=== PATIENT | female | born 1945 | race Caucasian/White ===

== ENCOUNTER 2017-05-31 09:43 | Outpatient (CLI) | payer MEDICARE, OTHER ==
[2017-05-31 10:27] LABS: eGFR (African) > 60; eGFR (Non-African) > 60
== END 2017-05-31 09:44 ==
LOC: LAB 09:43
PROVIDERS: ATTEND Family Medicine
DX: I10 Essential (primary) hypertension (principal); E11.9 Type 2 diabetes mellitus without complications
CPT/HCPCS: 36415; 80053; 80061; 82043; 83036

== ENCOUNTER 2018-06-03 09:15 | Outpatient (CLI) | payer MEDICARE, OTHER ==
[2018-06-03 12:03] LABS: eGFR (Non-African) > 60
== END 2018-06-03 09:30 ==
LOC: LAB 09:15
PROVIDERS: ATTEND Family Medicine
DX: E11.9 Type 2 diabetes mellitus without complications (principal); I10 Essential (primary) hypertension
CPT/HCPCS: 36415; 80053; 80061; 82043; 83036

== ENCOUNTER 2019-06-18 09:55 | Outpatient (CLI) | payer MEDICARE, OTHER ==
[2019-06-30 12:42] LABS: HDL 38 mg/dL (>40); eGFR (Non-African) > 60
== END 2019-06-18 10:05 ==
LOC: LAB 09:55
PROVIDERS: ATTEND Family Medicine
DX: I10 Essential (primary) hypertension (principal); E11.9 Type 2 diabetes mellitus without complications
CPT/HCPCS: 36415; 80053; 80061; 83036

== ENCOUNTER 2019-08-27 13:43 | Outpatient (CLI) | payer MEDICARE, OTHER ==
--- NOTE | 2019-08-29 17:15 | OP Clinic Progress Note ---
DATE OF VISIT: 08/27/2019 SUBJECTIVE: Colleen is a 73-year-old female presenting to the clinic today for follow-up of a pressure wound under the left great toe IPJ. She states that she has been using the surgical shoe at all times and keeping antibiotic and a Band- Aid over the wound. The patient does not admit to any other pain or issues. She is a diabetic female and has peripheral neuropathy due to chemotherapy. The patient does not admit to any fevers, chills, nausea, vomiting, shortness of breath or chest pain. The patient usually is using a home insert for her very low profile shoes with a pad that we had been applying previously. She has those ready to be used and to be adjusted once we are ready to put her back in a regular shoe. She is not interested in new inserts as the [employer] that I gave her previously with the pads she did not like and felt unstable in them. OBJECTIVE: Vitals: Temperature 97.7 degrees Fahrenheit, heart rate 75, respiration rate 16, blood pressure 133/73. O2 saturation is 95% on room air. Vascular: 2+ DP and PT pulses, left foot. Capillary refill time is less than 3 seconds to the toes of the left foot. There is no edema noted, left foot. Dermatologic: There is a mild hyperkeratosis overlying the previous wound that was debrided down to intact epithelium but with a very minimal hyperkeratosis left that was to remain to protect the skin to continue to heal underneath. This was still trimmed down to a soft callus at this time. There is no erythema, drainage or any open lesions of any kind. There is no ecchymosis noted. Musculoskeletal: There is no pain with debridement of the callus or with palpation anywhere on the left foot. Per previous exam there is 45 degrees of dorsiflexion and range of motion at the first MPJ left with forefoot not loaded versus decreased to 5-10 degrees of dorsiflexion with the forefoot loaded on the left foot. The first tarsometatarsal joint is also hypermobile per previous exam on the left foot both with the forefoot loaded and unloaded. Neurologic: Light touch sensation is absent to the toes, left foot. ASSESSMENT AND PLAN: 1. Skin ulcer, left great toe, unspecified ulcer stage; L97.529. 2. Hallux limitus of left foot; N20.5X2. 3. Diabetes mellitus type 2; E11.9. 4. Peripheral neuropathy due to chemotherapy; G62.0 and T4-T51X5A. PROCEDURE #1: Sharp debridement of the hyperkeratosis tissue of the left subfirst toe IPJ down to intact epithelium and very thin soft callus was performed today without any bleeding or open wound. This was dressed with a plain Band-Aid. The patient was encouraged to continue using a plain Band-Aid and only use antibiotic ointment with a Band-Aid if the wound opens up again. The patient had her surgical shoe padding adjusted with more padding and she is to continue using that at all times. The patient feels stable walking in the surgical shoe. The patient will continue this for the next 3 weeks to allow more healing time underneath the callus. I will plan on trimming the callus at that time and hopefully switch her to a regular shoe and adjust the padding on her insert to protect and offload that area. If at any time in the future this wound worsens again then I will for sure discuss surgical options with the patient to take care of this. The patient has no further questions or concerns and we will see her again in 3 weeks. Levy Goodwin D.P.M. Sania Job#: [id number] MTDD
== END 2019-08-27 14:13 ==
LOC: POD 13:43
PROVIDERS: ATTEND Podiatrist Foot & Ankle Surgery
DX: E11.621 Type 2 diabetes mellitus with foot ulcer (principal); L97.529 Non-pressure chronic ulcer of other part of left foot with unspecified severity; M20.5X2 Other deformities of toe(s) (acquired), left foot; G62.0 Drug-induced polyneuropathy; T45.1X5A Adverse effect of antineoplastic and immunosuppressive drugs, initial encounter
CPT/HCPCS: 11042; 99213; G0463; A4554

== ENCOUNTER 2019-09-18 09:31 | Outpatient (CLI) | payer MEDICARE, OTHER ==
--- NOTE | 2019-09-19 16:01 | OP Clinic Progress Note ---
DATE OF VISIT: 09/18/2019 SUBJECTIVE: Colleen is a 73-year-old female presenting to the clinic for a pressure wound under the left IPJ of the great toe. The patient has been dealing with a callus on this as well as a callus under the fifth metatarsal head on the right and both are bothering her again. Last time she was here two and a half weeks ago she had a very thin callus overlying the previous wound, which was left alone so that it could continue to improve. This has begun to hurt a little bit again and she is here for follow up as instructed. She does not admit to any fevers, chills, nausea, vomiting, shortness of breath or chest pain. She has different inserts with pads that she has been using in her shoes to try and offload these areas. The patient was encouraged to get back in insert with padding on the right foot that she has for her shoes to protect that fifth metatarsal head. The patient has been using her surgical shoe on the left with offloading area for the IPJ of the great toe. The patient has been using just a plain Band Aid over the IPJ callus. OBJECTIVE: Vitals: Temperature 98.0 degrees Fahrenheit, heart rate 73, respiration rate 16, blood pressure 133/67. O2 saturation is 92% on room air. Vascular: 2+ DP and PT pulses, left foot. Capillary refill time is less than 3 seconds to the toes left foot. There is no edema noted, left foot. Dermatologic: There is significant hyperkeratotic tissue overlying the plantar medial IPJ of the left great toe which was removed today to reveal an open wound that really did not bleed at all. The tissue seemed dry at this time. There is an open wound noted, however, that is measuring 1.0 x 0.6 x about 0.2 cm deep under the left hallux plantar IPJ area. There is no erythema or drainage or malodor or any warmth or signs of infection. The right sub fifth metatarsal head area has a small hyperkeratotic lesion that was debrided with a #15 blade down to intact skin. There is no erythema or ecchymosis or drainage of any kind or any open lesion noted in this area. There are no other skin abnormalities or concerns noted bilaterally. Musculoskeletal: There is slight pain on palpation noted at the callus site, sub fifth metatarsal head right foot as well as under the plantar medial IPJ of the left great toe. There is decreased range of motion with the forefoot loaded on the left first metatarsophalangeal joint versus not loaded. She has about 5- 10 degrees of dorsiflexion with forefoot loaded and 45 degrees of dorsiflexion with the forefoot not loaded. The patient also has increased range of motion at the first tarsometatarsal joint from previous exam. Neurologic: Light touch sensation is absent to the toes left foot. ASSESSMENT AND PLAN: 1. Skin ulcer left great toe, unspecified ulcer stage L97.529. 2. Hallux limitus left foot, N20.5X2. 3. Diabetes mellitus type 2, E11.9. 4. Peripheral neuropathy due to chemotherapy, G62.0 and T4-T51X5A. PROCEDURE #1: Sharp debridement of the pressure ulcer under the left great toe down to and including the subcutaneous tissue layer was performed at the #15 blade less than 20 sq cm today. This was rinsed with copious amount of normal saline, dried and had triple antibiotic ointment and a Band Aid applied. The patient is to continue using triple antibiotic ointment and a Band Aid daily. She is to continue in her surgical shoe as this seems to be a little bit worse than previous. It was about two and a half weeks since her last visit and we need to try and keep our visits closer together until we get this healed and then try and put her back in an offloading insert. The patient will continue her dressing changes at home and will get back into home insert with the padding I applied to it for her right foot to protect the fifth metatarsal head callus. We will check on that to make sure it is appropriate at the next visit. We will perhaps need to consider surgical treatment to prevent this site from breaking down again. We will consider talking about doing either a partial metatarsal head resection or aggressive cheilectomy to improve range of motion of this area going forward. The patient more likely would do well with an aggressive cheilectomy if needed on that left first metatarsophalangeal joint to take pressure off that area. We will do this only if the patient desires to do so or if we have difficulty getting this healed or difficulty keeping it healed. Otherwise, we will see the patient in two weeks. She knows that I am out of town next week and if there are any issues she needs to see Dr. Hopper or go to the ER. Levy Goodwin D.P.M. /[employer] [id number] /mab MTDD
== END 2019-09-18 10:02 ==
LOC: POD 09:31
PROVIDERS: ATTEND Podiatrist Foot & Ankle Surgery
DX: E11.621 Type 2 diabetes mellitus with foot ulcer (principal); L97.529 Non-pressure chronic ulcer of other part of left foot with unspecified severity; M20.5X2 Other deformities of toe(s) (acquired), left foot; G62.0 Drug-induced polyneuropathy; T45.1X5A Adverse effect of antineoplastic and immunosuppressive drugs, initial encounter
CPT/HCPCS: 11042; 99213; G0463; 99202; A4554